=== PATIENT | male | born 1965 | race Caucasian/White ===

== ENCOUNTER 2020-08-24 00:15 | Inpatient (IN) ==
[2020-08-24] MEDS ORDERED: Naloxone 0.4 MG/ML INJ IVP PRN (05:18)
[2020-08-24] MEDS ORDERED: Ondansetron 4 MG/2 ML VIAL IVP PRN (05:18)
[2020-08-24] MEDS ORDERED: Acetaminophen 325 MG TABLET PO PRN (05:18)
[2020-08-24] MEDS ORDERED: Perflutren Lipid Microsphere 1.3 ML in 0.9 % Sodium Chloride 8.7 ML IVP PRN (05:23)
[2020-08-24 06:12] LABS: Basophils # 0.1 K/mcL (0.0-0.2); Basophils % 0.3 %; Eosinophils # 0.1 K/mcL (0.0-0.6); Eosinophils % 0.4 %; Hematocrit 37.4 % (37.5-50.1); Immature Granulocytes % 1.1 % (0-4); Lymphocytes # 1.3 K/mcL (0.6-4.6); Lymphocytes % 7.3 %; Mean Corpuscular HGB Conc 34.8 g/dL (31.6-35.5); Mean Corpuscular Hemoglobin 32.7 pg (28.0-33.3); Mean Platelet Volume 9.4 fL (9.4-12.4); Monocytes % 11.3 %; Neutrophils # 14.4 K/mcL (1.6-8.9); Platelet Count 173 K/mcL (140-400); Red Blood Count 3.98 M/mcL (4.19-5.50); Red Cell Distribution Width 13.1 % (11.5-14.5); Segmented Neutrophils % 79.6 %; White Blood Count 18.1 K/mcL (4.3-11.1)
[2020-08-24] MEDS: 0.9 % Sodium Chloride 1,000 ML IVC SCH ×3 (06:13→22:15)
[2020-08-24 06:35] LABS: BUN/Creatinine Ratio 19 (6-26); Blood Urea Nitrogen 26 mg/dL (6-20); Calcium 9.3 mg/dL (8.6-10.3); Carbon Dioxide 34 mEq/L (23-29); Chloride 86 mEq/L (98-107); Glucose 159 mg/dL (70-105); Magnesium 1.8 mg/dL (1.6-2.6); Osmolality,Calculated 282 (280-300); Potassium 2.6 mEq/L (3.5-5.1); Sodium 132 mEq/L (136-145); eGFR For African Americans > 60 (> 60); eGFR For Non-African Americans 53 (> 60)
[2020-08-24 06:55] LABS: Prolactin 10.87 ng/mL (3.00-14.70)
[2020-08-24 07:02] LABS: Thyroid Stimulating Hormone 4.228 mcIU/mL (0.340-5.600)
[2020-08-24 07:25] LABS: Troponin I 0.08 ng/mL (< 0.04)
[2020-08-24] MEDS ORDERED: Piperacillin/Tazobactam 3.375 GM in 0.9 % Sodium Chloride Mini Bag 100 ML IVPB SCH (08:00)
[2020-08-24] MEDS: Clindamycin 600 MG/50 ML 600 MG/50 ML IV.SOLN IVPB SCH ×2 (08:24→16:44)
[2020-08-24] MEDS: Potassium Chloride Elixir 20 MEQ/15 ML UDC PO SCH ×2 (08:24→09:29)
[2020-08-24] MEDS: *HR* Metoprolol 5 MG/5 ML VIAL IVP PRN (08:37)
[2020-08-24 09:31] LABS: Bacteria,Urine Few per hpf (None-Few); Bilirubin,Urine Negative (Negative); Blood,Urine Trace (Negative); Clarity,Urine Clear (Clear); Color,Urine Yellow (Yellow); Glucose,Urine (UA) Normal (Normal); Ketones,Urine Negative (Negative); Leukocyte Esterase,Urine Small (Negative); Mucus,Urine Few per lpf (None-Few); Nitrite,Urine Negative (Negative); Protein,Urine Trace mg/dL (Neg-Trace); RBC,Urine 0-3 per hpf (0-3); Specific Gravity,Urine 1.018 (1.010-1.025); Squamous Epithelial Cell,Urine Few per hpf (None-Few); Urobilinogen,Urine Normal (Normal); WBC,Urine 15-30 per hpf (0-3)
[2020-08-24 10:13] LABS: C-Reactive Protein > 300 mg/L (Less than 10)
[2020-08-24] MEDS: cefTRIAXone 2,000 MG in Water for inj. (sterile) 20 ML IVP SCH (13:00)
[2020-08-24] MEDS: *HR* Rivaroxaban 10 MG TABLET PO SCH (17:11)
[2020-08-24 18:43] LABS: Estimated Average Glucose 154 mg/dl
[2020-08-24 20:08] LABS: Potassium 2.8 mEq/L (3.5-5.1)
[2020-08-24 20:10] LABS: Troponin I 0.03 ng/mL (< 0.04)
[2020-08-24] MEDS: ARIPiprazole 5 MG TABLET PO SCH (23:21)
[2020-08-24] MEDS: allopurinoL 100 MG TABLET PO SCH (23:22)
[2020-08-25] MEDS: Clindamycin 600 MG/50 ML 600 MG/50 ML IV.SOLN IVPB SCH ×3 (00:07→16:51)
[2020-08-25 06:36] LABS: Basophils # 0.1 K/mcL (0.0-0.2); Basophils % 0.5 %; Eosinophils # 0.3 K/mcL (0.0-0.6); Hematocrit 35.1 % (37.5-50.1); Hemoglobin 12.1 g/dL (12.9-16.9); Immature Granulocytes % 0.8 % (0-4); Lymphocytes # 1.5 K/mcL (0.6-4.6); Lymphocytes % 11.9 %; Mean Corpuscular HGB Conc 34.5 g/dL (31.6-35.5); Mean Corpuscular Hemoglobin 32.9 pg (28.0-33.3); Mean Corpuscular Volume 95.4 fL (83.0-100.0); Mean Platelet Volume 9.5 fL (9.4-12.4); Monocytes # 1.5 K/mcL (0.0-1.3); Monocytes % 11.6 %; Neutrophils # 9.4 K/mcL (1.6-8.9); Platelet Count 172 K/mcL (140-400); Red Blood Count 3.68 M/mcL (4.19-5.50); Red Cell Distribution Width 13.3 % (11.5-14.5); Segmented Neutrophils % 73.2 %; White Blood Count 12.9 K/mcL (4.3-11.1)
[2020-08-25 06:53] LABS: BUN/Creatinine Ratio 18 (6-26); Blood Urea Nitrogen 19 mg/dL (6-20); Calcium 8.8 mg/dL (8.6-10.3); Carbon Dioxide 33 mEq/L (23-29); Chloride 94 mEq/L (98-107); Glucose 161 mg/dL (70-105); Osmolality,Calculated 286 (280-300); Sodium 135 mEq/L (136-145); eGFR For African Americans > 60 (> 60); eGFR For Non-African Americans > 60 (> 60)
[2020-08-25 06:54] LABS: Chol/HDL Ratio 7.9 (0-4.9)
[2020-08-25] MEDS: Aspirin Enteric Coated 81 MG Tablet PO SCH (08:47)
[2020-08-25] MEDS: allopurinoL 100 MG TABLET PO SCH ×3 (08:47→19:48)
[2020-08-25] MEDS: cefTRIAXone 2,000 MG in Water for inj. (sterile) 20 ML IVP SCH (12:44)
[2020-08-25] MEDS: lamoTRIgine 100 MG TABLET PO SCH (12:49)
[2020-08-25] MEDS ORDERED: Potassium Chloride Elixir 20 MEQ/15 ML UDC PO ONE (12:52)
[2020-08-25] MEDS: Furosemide 40 MG/4 ML VIAL IVP SCH (14:38)
[2020-08-25] MEDS ORDERED: NON-FORMULARY MEDICATION 1 EACH EACH (Pravastatin Sodium [Pravachol] 40 MG Tablet) PO SCH (18:00)
[2020-08-25] MEDS: *HR* Rivaroxaban 10 MG TABLET PO SCH (18:19)
[2020-08-25] MEDS: *HR* Metoprolol 5 MG/5 ML VIAL IVP PRN (18:20)
[2020-08-25] MEDS: Doxycycline 100 MG CAPSULE PO SCH (19:48)
[2020-08-25] MEDS: ARIPiprazole 5 MG TABLET PO SCH (19:48)
[2020-08-25 20:23] LABS: BUN/Creatinine Ratio 18 (6-26); Blood Urea Nitrogen 18 mg/dL (6-20); Calcium 9.1 mg/dL (8.6-10.3); Carbon Dioxide 31 mEq/L (23-29); Chloride 92 mEq/L (98-107); Glucose 230 mg/dL (70-105); Osmolality,Calculated 283 (280-300); Potassium 3.3 mEq/L (3.5-5.1); Sodium 132 mEq/L (136-145); eGFR For African Americans > 60 (> 60); eGFR For Non-African Americans > 60 (> 60)
[2020-08-25] MEDS: 0.9 % Sodium Chloride 1,000 ML IVC SCH (22:11)
[2020-08-26 03:03] LABS: Hematocrit 38.4 % (37.5-50.1); Hemoglobin 13.3 g/dL (12.9-16.9); Mean Corpuscular HGB Conc 34.6 g/dL (31.6-35.5); Mean Corpuscular Hemoglobin 32.8 pg (28.0-33.3); Mean Corpuscular Volume 94.6 fL (83.0-100.0); Mean Platelet Volume 9.4 fL (9.4-12.4); Platelet Count 199 K/mcL (140-400); Red Blood Count 4.06 M/mcL (4.19-5.50); Red Cell Distribution Width 13.1 % (11.5-14.5); White Blood Count 12.9 K/mcL (4.3-11.1)
[2020-08-26 03:22] LABS: BUN/Creatinine Ratio 19 (6-26); Blood Urea Nitrogen 18 mg/dL (6-20); Calcium 9.3 mg/dL (8.6-10.3); Carbon Dioxide 30 mEq/L (23-29); Chloride 92 mEq/L (98-107); Glucose 148 mg/dL (70-105); Osmolality,Calculated 285 (280-300); Potassium 3.1 mEq/L (3.5-5.1); Sodium 135 mEq/L (136-145); eGFR For African Americans > 60 (> 60); eGFR For Non-African Americans > 60 (> 60)
[2020-08-26] MEDS: Furosemide 40 MG/4 ML VIAL IVP SCH (08:17)
[2020-08-26] MEDS: Doxycycline 100 MG CAPSULE PO SCH ×2 (08:17→22:01)
[2020-08-26] MEDS: lamoTRIgine 100 MG TABLET PO SCH (08:17)
[2020-08-26] MEDS: allopurinoL 100 MG TABLET PO SCH ×3 (08:17→22:01)
[2020-08-26] MEDS: Aspirin Enteric Coated 81 MG Tablet PO SCH (08:17)
[2020-08-26] MEDS ORDERED: Potassium Chloride Elixir 20 MEQ/15 ML UDC PO ONE ×2 (09:07→15:00)
[2020-08-26] MEDS ORDERED: Magnesium Sulfate 1 GM/102 ML PIGGYBACK IVPB ONE ×2 (09:40→15:00)
[2020-08-26] MEDS: cefTRIAXone 2,000 MG in Water for inj. (sterile) 20 ML IVP SCH (14:46)
[2020-08-26] MEDS: *HR* Metoprolol 5 MG/5 ML VIAL IVP PRN (14:48)
[2020-08-26] MEDS: *HR* Rivaroxaban 10 MG TABLET PO SCH (18:13)
[2020-08-26] MEDS: Metoprolol XL (24 HR) Succ 50 MG TAB.ER.24H PO SCH ×2 (18:13→22:07)
[2020-08-26] MEDS: ARIPiprazole 5 MG TABLET PO SCH (22:01)
[2020-08-27] MEDS ORDERED: Benzonatate 100 MG CAPSULE PO PRN (02:41)
[2020-08-27 06:19] LABS: Hematocrit 38.9 % (37.5-50.1); Hemoglobin 12.9 g/dL (12.9-16.9); Mean Corpuscular HGB Conc 33.2 g/dL (31.6-35.5); Mean Corpuscular Hemoglobin 32.1 pg (28.0-33.3); Mean Corpuscular Volume 96.8 fL (83.0-100.0); Mean Platelet Volume 9.6 fL (9.4-12.4); Platelet Count 215 K/mcL (140-400); Red Blood Count 4.02 M/mcL (4.19-5.50); Red Cell Distribution Width 13.2 % (11.5-14.5); White Blood Count 15.1 K/mcL (4.3-11.1)
[2020-08-27 06:38] LABS: BUN/Creatinine Ratio 19 (6-26); Blood Urea Nitrogen 19 mg/dL (6-20); Calcium 9.6 mg/dL (8.6-10.3); Carbon Dioxide 31 mEq/L (23-29); Chloride 95 mEq/L (98-107); Glucose 152 mg/dL (70-105); Osmolality,Calculated 285 (280-300); Sodium 135 mEq/L (136-145); eGFR For African Americans > 60 (> 60); eGFR For Non-African Americans > 60 (> 60)
[2020-08-27] MEDS: Aspirin Enteric Coated 81 MG Tablet PO SCH (08:39)
[2020-08-27] MEDS: lamoTRIgine 100 MG TABLET PO SCH (08:40)
[2020-08-27] MEDS: Doxycycline 100 MG CAPSULE PO SCH (08:40)
[2020-08-27] MEDS: Metoprolol XL (24 HR) Succ 50 MG TAB.ER.24H PO SCH (08:40)
[2020-08-27] MEDS: Furosemide 40 MG/4 ML VIAL IVP SCH (08:40)
[2020-08-27] MEDS: allopurinoL 100 MG TABLET PO SCH ×2 (08:40→15:06)
[2020-08-27] MEDS ORDERED: Potassium Chloride Elixir 20 MEQ/15 ML UDC PO ONE (08:59)
[2020-08-27 09:55] LABS: Magnesium 1.7 mg/dL (1.6-2.6)
[2020-08-27 11:14] VITALS: BP 144/96
[2020-08-27] MEDS: cefTRIAXone 2,000 MG in Water for inj. (sterile) 20 ML IVP SCH (12:14)
[2020-08-27] MEDS ORDERED: DilTIAZem CD (24hr) 180 MG CAP.ER.24H PO SCH (13:00)
== END 2020-08-27 16:00 | disposition home or self-care (01) | DRG 871 ==
LOC: CDU → SUATTDRO 04:21
PROVIDERS: ADMIT Internal Medicine; ATTEND Internal Medicine

== ENCOUNTER 2021-10-14 11:16 | Inpatient (IN) ==
[2021-10-14] MEDS ORDERED: Naloxone 0.4 MG/ML INJ IVP PRN (14:35)
[2021-10-14] MEDS ORDERED: Ondansetron 4 MG/2 ML VIAL IVP PRN (14:35)
[2021-10-14] MEDS ORDERED: *HR* Dextrose 50 % in Water (Syg) 50 ML SYRINGE IVP PRN (14:38)
[2021-10-14] MEDS ORDERED: Dextrose Gel 15 GM/37.5 ML TUBE PO PRN ×2 (14:38)
[2021-10-14] MEDS ORDERED: D5% in Water 1,000 ML IVC PRN (14:38)
[2021-10-14] MEDS ORDERED: *HR* OxyCODONE Immed Rel 5 MG TABLET PO PRN (14:41)
[2021-10-14] MEDS: DilTIAZem CD (24hr) 180 MG CAP.ER.24H PO SCH (15:03)
[2021-10-14] MEDS: cefTRIAXone 1,000 MG in 0.9 % Sodium Chloride 10 ML IVPB SCH (15:03)
[2021-10-14 15:33] LABS: Calcium 8.6 mg/dL (8.6-10.3); Magnesium 1.7 mg/dL (1.6-2.6); Potassium 3.2 mEq/L (3.5-5.1)
[2021-10-14] MEDS: Insulin LISPRO 300 UNITS/3 ML VIAL SUBQ SCH ×2 (17:02→20:20)
[2021-10-14] MEDS ORDERED: Metoprolol XL (24 HR) Succ 50 MG TAB.ER.24H PO SCH (21:00)
[2021-10-15] MEDS ORDERED: Acetaminophen 325 MG TABLET PO PRN (00:04)
[2021-10-15 03:27] LABS: Magnesium 1.9 mg/dL (1.6-2.6)
[2021-10-15] MEDS: Magnesium Oxide 400 MG TABLET PO SCH ×2 (09:09→19:57)
[2021-10-15] MEDS: allopurinoL 100 MG TABLET PO SCH ×3 (09:09→19:54)
[2021-10-15] MEDS: DilTIAZem CD (24hr) 180 MG CAP.ER.24H PO SCH (09:09)
[2021-10-15] MEDS: lamoTRIgine 100 MG TABLET PO SCH (09:09)
[2021-10-15] MEDS: ARIPiprazole 5 MG TABLET PO SCH (09:09)
[2021-10-15] MEDS: Metoprolol XL (24 HR) Succ 50 MG TAB.ER.24H PO SCH ×2 (09:10→19:57)
[2021-10-15] MEDS: (Dapagliflozin Propanediol [Farxiga] 5 MG Tablet) PO SCH (09:10)
[2021-10-15] MEDS: DEXTROAMPHETAMINE PO SCH ×2 (09:10→19:53)
[2021-10-15] MEDS: Aspirin Enteric Coated 81 MG Tablet PO SCH (09:10)
[2021-10-15] MEDS: cefTRIAXone 1,000 MG in 0.9 % Sodium Chloride 10 ML IVPB SCH (09:10)
[2021-10-15] MEDS: AMPHETAMINE PO SCH ×2 (09:10→19:53)
[2021-10-15] MEDS: Insulin LISPRO 300 UNITS/3 ML VIAL SUBQ SCH ×4 (09:11→19:57)
[2021-10-15 10:24] LABS: Basophils # 0.1 K/mcL (0.0-0.2); Basophils % 0.5 %; Eosinophils # 0.1 K/mcL (0.0-0.6); Eosinophils % 0.6 %; Hematocrit 37.5 % (37.5-50.1); Immature Granulocytes % 0.9 % (0-4); Lymphocytes # 1.5 K/mcL (0.6-4.6); Lymphocytes % 8.9 %; Mean Corpuscular HGB Conc 34.7 g/dL (31.6-35.5); Mean Corpuscular Hemoglobin 32.6 pg (28.0-33.3); Monocytes # 1.4 K/mcL (0.0-1.3); Monocytes % 8.3 %; Neutrophils # 13.8 K/mcL (1.6-8.9); Platelet Count 201 K/mcL (140-400); Red Blood Count 3.99 M/mcL (4.19-5.50); Red Cell Distribution Width 14.4 % (11.5-14.5); Segmented Neutrophils % 80.8 %; White Blood Count 17.1 K/mcL (4.3-11.1)
[2021-10-15] MEDS ORDERED: Furosemide 20 MG/2 ML VIAL IVP ONE (11:12)
[2021-10-15] MEDS: *HR* Rivaroxaban 10 MG TABLET PO SCH (17:02)
[2021-10-15] MEDS: Magic Mouthwash 10 ML UD Cup PO ONE ×2 (21:05)
[2021-10-16] MEDS ORDERED: *HR* Promethazine 25 MG/ML VIAL IM ONE ×2 (00:06→06:05)
[2021-10-16 02:19] LABS: Basophils # 0.1 K/mcL (0.0-0.2); Basophils % 0.3 %; Eosinophils % 0.2 %; Hematocrit 37.8 % (37.5-50.1); Hemoglobin 12.8 g/dL (12.9-16.9); Immature Granulocytes % 1.1 % (0-4); Lymphocytes % 5.2 %; Mean Corpuscular HGB Conc 33.9 g/dL (31.6-35.5); Mean Corpuscular Hemoglobin 32.3 pg (28.0-33.3); Mean Corpuscular Volume 95.5 fL (83.0-100.0); Mean Platelet Volume 10.1 fL (9.4-12.4); Monocytes # 1.3 K/mcL (0.0-1.3); Monocytes % 7.2 %; Platelet Count 205 K/mcL (140-400); Red Blood Count 3.96 M/mcL (4.19-5.50); Red Cell Distribution Width 14.4 % (11.5-14.5); White Blood Count 18.6 K/mcL (4.3-11.1)
[2021-10-16 02:44] LABS: Calcium 8.8 mg/dL (8.6-10.3); Potassium 3.8 mEq/L (3.5-5.1)
[2021-10-16] MEDS ORDERED: Iopamidol - 370 500 ML MLS IVP ONE (04:42)
[2021-10-16] MEDS: Insulin LISPRO 300 UNITS/3 ML VIAL SUBQ SCH ×4 (08:05→20:08)
[2021-10-16] MEDS: cefTRIAXone 1,000 MG in 0.9 % Sodium Chloride 10 ML IVPB SCH (08:07)
[2021-10-16] MEDS: ARIPiprazole 5 MG TABLET PO SCH (08:08)
[2021-10-16] MEDS: Aspirin Enteric Coated 81 MG Tablet PO SCH (08:08)
[2021-10-16] MEDS: Metoprolol XL (24 HR) Succ 50 MG TAB.ER.24H PO SCH ×2 (08:08→20:07)
[2021-10-16] MEDS: Furosemide 20 MG/2 ML VIAL IVP SCH ×2 (08:08→20:07)
[2021-10-16] MEDS: DilTIAZem CD (24hr) 180 MG CAP.ER.24H PO SCH (08:08)
[2021-10-16] MEDS: lamoTRIgine 100 MG TABLET PO SCH (08:08)
[2021-10-16] MEDS: (Dapagliflozin Propanediol [Farxiga] 5 MG Tablet) PO SCH (08:09)
[2021-10-16] MEDS: AMPHETAMINE PO SCH ×2 (08:09→20:08)
[2021-10-16] MEDS: allopurinoL 100 MG TABLET PO SCH ×3 (08:09→20:07)
[2021-10-16] MEDS: Magnesium Oxide 400 MG TABLET PO SCH ×2 (08:09→20:07)
[2021-10-16] MEDS: DEXTROAMPHETAMINE PO SCH ×2 (08:09→20:08)
[2021-10-16] MEDS: Metoclopramide 10 MG/2 ML VIAL IVP SCH ×2 (09:05→16:21)
[2021-10-16] MEDS: Pantoprazole 40 MG VIAL IVP SCH ×2 (09:05→18:10)
[2021-10-16] MEDS: *HR* Rivaroxaban 10 MG TABLET PO SCH (16:20)
[2021-10-16] MEDS: *HR* Metoprolol 5 MG/5 ML VIAL IVP PRN (20:50)
[2021-10-17] MEDS: Metoclopramide 10 MG/2 ML VIAL IVP SCH ×3 (00:07→16:42)
[2021-10-17 03:26] LABS: Basophils # 0.1 K/mcL (0.0-0.2); Basophils % 0.5 %; Eosinophils # 0.2 K/mcL (0.0-0.6); Eosinophils % 1.8 %; Hematocrit 38.5 % (37.5-50.1); Hemoglobin 12.7 g/dL (12.9-16.9); Immature Granulocytes % 0.9 % (0-4); Lymphocytes # 1.5 K/mcL (0.6-4.6); Lymphocytes % 11.8 %; Mean Corpuscular Hemoglobin 32.1 pg (28.0-33.3); Mean Corpuscular Volume 97.2 fL (83.0-100.0); Mean Platelet Volume 9.8 fL (9.4-12.4); Monocytes # 1.5 K/mcL (0.0-1.3); Monocytes % 11.6 %; Neutrophils # 9.6 K/mcL (1.6-8.9); Nucleated Red Blood Cells 0.2 /100 WBC (0); Platelet Count 258 K/mcL (140-400); Red Blood Count 3.96 M/mcL (4.19-5.50); Red Cell Distribution Width 14.6 % (11.5-14.5); Segmented Neutrophils % 73.4 %; White Blood Count 13.1 K/mcL (4.3-11.1)
[2021-10-17 03:42] LABS: Calcium 8.7 mg/dL (8.6-10.3); Magnesium 2.2 mg/dL (1.6-2.6); Potassium 3.5 mEq/L (3.5-5.1)
[2021-10-17] MEDS: *HR* Metoprolol 5 MG/5 ML VIAL IVP PRN (05:15)
[2021-10-17] MEDS: Pantoprazole 40 MG VIAL IVP SCH ×2 (05:15→16:44)
[2021-10-17] MEDS: Metoprolol XL (24 HR) Succ 50 MG TAB.ER.24H PO SCH ×2 (09:09→21:34)
[2021-10-17] MEDS: lamoTRIgine 100 MG TABLET PO SCH (09:10)
[2021-10-17] MEDS: Magnesium Oxide 400 MG TABLET PO SCH ×2 (09:10→21:35)
[2021-10-17] MEDS: Aspirin Enteric Coated 81 MG Tablet PO SCH (09:10)
[2021-10-17] MEDS: allopurinoL 100 MG TABLET PO SCH ×3 (09:10→21:34)
[2021-10-17] MEDS: ARIPiprazole 5 MG TABLET PO SCH (09:10)
[2021-10-17] MEDS: DilTIAZem CD (24hr) 180 MG CAP.ER.24H PO SCH (09:10)
[2021-10-17] MEDS: cefTRIAXone 1,000 MG in 0.9 % Sodium Chloride 10 ML IVPB SCH (09:11)
[2021-10-17] MEDS: Furosemide 20 MG/2 ML VIAL IVP SCH ×2 (09:11→21:34)
[2021-10-17] MEDS: Insulin LISPRO 300 UNITS/3 ML VIAL SUBQ SCH ×4 (09:12→21:35)
[2021-10-17] MEDS: (Dapagliflozin Propanediol [Farxiga] 5 MG Tablet) PO SCH (09:12)
[2021-10-17] MEDS: DEXTROAMPHETAMINE PO SCH ×2 (09:13→22:00)
[2021-10-17] MEDS: AMPHETAMINE PO SCH ×2 (09:13→22:00)
[2021-10-18] MEDS: Metoclopramide 10 MG/2 ML VIAL IVP SCH ×3 (01:30→18:32)
[2021-10-18 02:50] LABS: Basophils # 0.1 K/mcL (0.0-0.2); Basophils % 0.7 %; Eosinophils # 0.2 K/mcL (0.0-0.6); Eosinophils % 1.5 %; Hematocrit 37.9 % (37.5-50.1); Hemoglobin 12.6 g/dL (12.9-16.9); Immature Granulocytes % 1.1 % (0-4); Lymphocytes # 1.5 K/mcL (0.6-4.6); Lymphocytes % 12.2 %; Mean Corpuscular HGB Conc 33.2 g/dL (31.6-35.5); Mean Corpuscular Hemoglobin 32.4 pg (28.0-33.3); Mean Corpuscular Volume 97.4 fL (83.0-100.0); Mean Platelet Volume 9.7 fL (9.4-12.4); Monocytes # 1.2 K/mcL (0.0-1.3); Monocytes % 9.9 %; Neutrophils # 9.2 K/mcL (1.6-8.9); Platelet Count 258 K/mcL (140-400); Red Blood Count 3.89 M/mcL (4.19-5.50); Red Cell Distribution Width 14.4 % (11.5-14.5); Segmented Neutrophils % 74.6 %; White Blood Count 12.3 K/mcL (4.3-11.1)
[2021-10-18 03:12] LABS: BUN/Creatinine Ratio 18 (6-26); Blood Urea Nitrogen 16 mg/dL (6-20); Calcium 8.8 mg/dL (8.6-10.3); Carbon Dioxide 34 mEq/L (23-29); Chloride 97 mEq/L (98-107); Glucose 187 mg/dL (70-105); Osmolality,Calculated 294 (280-300); Potassium 3.3 mEq/L (3.5-5.1); Sodium 139 mEq/L (136-145)
[2021-10-18] MEDS: Pantoprazole 40 MG VIAL IVP SCH ×2 (06:17→18:32)
[2021-10-18] MEDS: Aspirin Enteric Coated 81 MG Tablet PO SCH (08:01)
[2021-10-18] MEDS: lamoTRIgine 100 MG TABLET PO SCH (08:06)
[2021-10-18] MEDS: ARIPiprazole 5 MG TABLET PO SCH (08:06)
[2021-10-18] MEDS: allopurinoL 100 MG TABLET PO SCH ×3 (08:06→20:47)
[2021-10-18] MEDS: Metoprolol XL (24 HR) Succ 50 MG TAB.ER.24H PO SCH ×2 (08:07→20:48)
[2021-10-18] MEDS: Magnesium Oxide 400 MG TABLET PO SCH ×2 (08:07→20:47)
[2021-10-18] MEDS: DilTIAZem CD (24hr) 180 MG CAP.ER.24H PO SCH (08:08)
[2021-10-18] MEDS: cefTRIAXone 1,000 MG in 0.9 % Sodium Chloride 10 ML IVPB SCH (08:09)
[2021-10-18] MEDS: Furosemide 20 MG/2 ML VIAL IVP SCH ×2 (08:09→20:48)
[2021-10-18] MEDS: DEXTROAMPHETAMINE PO SCH ×2 (08:13→20:49)
[2021-10-18] MEDS: AMPHETAMINE PO SCH ×2 (08:13→20:49)
[2021-10-18] MEDS: (Dapagliflozin Propanediol [Farxiga] 5 MG Tablet) PO SCH (08:13)
[2021-10-18] MEDS: Insulin LISPRO 300 UNITS/3 ML VIAL SUBQ SCH ×4 (10:06→20:52)
[2021-10-18] MEDS ORDERED: *HR* Propofol 200 MG/20 ML VIAL IVP ONE (10:54)
[2021-10-18] MEDS ORDERED: Lidocaine HCL 4 ML Topical Solution (Laryng-O-Jet Kit Sterile Pak) TP ONE (10:54)
[2021-10-18] MEDS ORDERED: Lidocaine -MPF 2% 5 ML VIAL ONE (10:54)
[2021-10-18] MEDS ORDERED: *HR* Succinylcholine 200 MG/10 ML VIAL IVP ONE (10:54)
[2021-10-18] MEDS ORDERED: Ondansetron 4 MG/2 ML VIAL ONE (12:09)
[2021-10-18] MEDS ORDERED: allopurinoL 100 MG TABLET ONE (18:02)
[2021-10-18] MEDS: *HR* Rivaroxaban 10 MG TABLET PO SCH (18:32)
[2021-10-18] MEDS: *HR* Metoprolol 5 MG/5 ML VIAL IVP PRN (22:48)
[2021-10-18] MEDS ORDERED: *HR* Metoprolol 5 MG/5 ML VIAL IVP ONE (23:45)
[2021-10-19] MEDS: Metoclopramide 10 MG/2 ML VIAL IVP SCH ×3 (01:50→15:04)
[2021-10-19 06:16] LABS: Basophils # 0.1 K/mcL (0.0-0.2); Basophils % 0.3 %; Eosinophils % 0.1 %; Hematocrit 38.1 % (37.5-50.1); Hemoglobin 13.2 g/dL (12.9-16.9); Immature Granulocytes % 0.9 % (0-4); Lymphocytes % 5.7 %; Mean Corpuscular HGB Conc 34.6 g/dL (31.6-35.5); Mean Corpuscular Hemoglobin 33.2 pg (28.0-33.3); Mean Platelet Volume 9.5 fL (9.4-12.4); Monocytes # 0.9 K/mcL (0.0-1.3); Monocytes % 5.1 %; Neutrophils # 15.7 K/mcL (1.6-8.9); Platelet Count 298 K/mcL (140-400); Red Blood Count 3.97 M/mcL (4.19-5.50); Red Cell Distribution Width 13.8 % (11.5-14.5); Segmented Neutrophils % 87.9 %; White Blood Count 17.8 K/mcL (4.3-11.1)
[2021-10-19] MEDS: Pantoprazole 40 MG VIAL IVP SCH (06:28)
[2021-10-19 06:39] LABS: BUN/Creatinine Ratio 20 (6-26); Blood Urea Nitrogen 17 mg/dL (6-20); Calcium 9.2 mg/dL (8.6-10.3); Carbon Dioxide 32 mEq/L (23-29); Chloride 98 mEq/L (98-107); Glucose 186 mg/dL (70-105); Osmolality,Calculated 290 (280-300); Potassium 3.9 mEq/L (3.5-5.1); Sodium 137 mEq/L (136-145)
[2021-10-19] MEDS: Aspirin Enteric Coated 81 MG Tablet PO SCH (08:09)
[2021-10-19] MEDS: lamoTRIgine 100 MG TABLET PO SCH (08:09)
[2021-10-19] MEDS: Magnesium Oxide 400 MG TABLET PO SCH ×2 (08:09→21:16)
[2021-10-19] MEDS: Metoprolol XL (24 HR) Succ 50 MG TAB.ER.24H PO SCH ×2 (08:10→21:16)
[2021-10-19] MEDS: ARIPiprazole 5 MG TABLET PO SCH (08:10)
[2021-10-19] MEDS: DilTIAZem CD (24hr) 180 MG CAP.ER.24H PO SCH (08:10)
[2021-10-19] MEDS: allopurinoL 100 MG TABLET PO SCH ×3 (08:10→21:16)
[2021-10-19] MEDS: cefTRIAXone 1,000 MG in 0.9 % Sodium Chloride 10 ML IVPB SCH (08:10)
[2021-10-19] MEDS: Furosemide 20 MG/2 ML VIAL IVP SCH ×2 (08:11→21:16)
[2021-10-19] MEDS: (Dapagliflozin Propanediol [Farxiga] 5 MG Tablet) PO SCH (08:11)
[2021-10-19] MEDS: Insulin LISPRO 300 UNITS/3 ML VIAL SUBQ SCH ×4 (08:12→21:17)
[2021-10-19] MEDS: AMPHETAMINE PO SCH ×2 (08:12→21:17)
[2021-10-19] MEDS: DEXTROAMPHETAMINE PO SCH ×2 (08:12→21:17)
[2021-10-19] MEDS: *HR* Rivaroxaban 10 MG TABLET PO SCH (15:03)
[2021-10-20 03:56] LABS: Basophils # 0.1 K/mcL (0.0-0.2); Basophils % 0.6 %; Eosinophils # 0.3 K/mcL (0.0-0.6); Eosinophils % 1.7 %; Hematocrit 40.5 % (37.5-50.1); Hemoglobin 13.9 g/dL (12.9-16.9); Immature Granulocytes % 1.8 % (0-4); Lymphocytes # 1.9 K/mcL (0.6-4.6); Mean Corpuscular HGB Conc 34.3 g/dL (31.6-35.5); Mean Corpuscular Volume 96.2 fL (83.0-100.0); Mean Platelet Volume 10.2 fL (9.4-12.4); Monocytes # 1.2 K/mcL (0.0-1.3); Monocytes % 7.5 %; Platelet Count 326 K/mcL (140-400); Red Blood Count 4.21 M/mcL (4.19-5.50); Red Cell Distribution Width 13.9 % (11.5-14.5); Segmented Neutrophils % 76.4 %; White Blood Count 15.7 K/mcL (4.3-11.1)
[2021-10-20 04:16] LABS: BUN/Creatinine Ratio 19 (6-26); Blood Urea Nitrogen 18 mg/dL (6-20); Carbon Dioxide 29 mEq/L (23-29); Chloride 97 mEq/L (98-107); Glucose 162 mg/dL (70-105); Osmolality,Calculated 289 (280-300); Potassium 3.3 mEq/L (3.5-5.1); Sodium 137 mEq/L (136-145)
[2021-10-20] MEDS ORDERED: Potassium Effervescent 25 MEQ TABLET.EFF PO ONE (07:57)
[2021-10-20] MEDS: Aspirin Enteric Coated 81 MG Tablet PO SCH (08:07)
[2021-10-20] MEDS: Magnesium Oxide 400 MG TABLET PO SCH ×2 (08:07→19:49)
[2021-10-20] MEDS: allopurinoL 100 MG TABLET PO SCH ×3 (08:08→19:49)
[2021-10-20] MEDS: Furosemide 20 MG/2 ML VIAL IVP SCH ×2 (08:08→19:48)
[2021-10-20] MEDS: Metoprolol XL (24 HR) Succ 50 MG TAB.ER.24H PO SCH ×2 (08:08→19:49)
[2021-10-20] MEDS: DilTIAZem CD (24hr) 180 MG CAP.ER.24H PO SCH (08:08)
[2021-10-20] MEDS: lamoTRIgine 100 MG TABLET PO SCH (08:08)
[2021-10-20] MEDS: cefTRIAXone 1,000 MG in 0.9 % Sodium Chloride 10 ML IVPB SCH (08:09)
[2021-10-20] MEDS: (Dapagliflozin Propanediol [Farxiga] 5 MG Tablet) PO SCH (08:10)
[2021-10-20] MEDS: DEXTROAMPHETAMINE PO SCH ×2 (08:10→19:49)
[2021-10-20] MEDS: AMPHETAMINE PO SCH ×2 (08:10→19:49)
[2021-10-20] MEDS: Insulin LISPRO 300 UNITS/3 ML VIAL SUBQ SCH ×4 (08:11→17:21)
[2021-10-20] MEDS: ARIPiprazole 5 MG TABLET PO SCH (12:01)
[2021-10-20] MEDS: *HR* Rivaroxaban 10 MG TABLET PO SCH (17:20)
[2021-10-21 01:51] LABS: Basophils # 0.1 K/mcL (0.0-0.2); Basophils % 1.2 %; Eosinophils # 0.3 K/mcL (0.0-0.6); Eosinophils % 3.2 %; Hematocrit 38.2 % (37.5-50.1); Lymphocytes # 2.5 K/mcL (0.6-4.6); Lymphocytes % 22.9 %; Mean Corpuscular Hemoglobin 32.8 pg (28.0-33.3); Mean Corpuscular Volume 96.5 fL (83.0-100.0); Mean Platelet Volume 9.5 fL (9.4-12.4); Monocytes # 1.2 K/mcL (0.0-1.3); Neutrophils # 6.3 K/mcL (1.6-8.9); Platelet Count 315 K/mcL (140-400); Red Blood Count 3.96 M/mcL (4.19-5.50); Red Cell Distribution Width 13.7 % (11.5-14.5); Segmented Neutrophils % 58.7 %; White Blood Count 10.8 K/mcL (4.3-11.1)
[2021-10-21 02:08] LABS: BUN/Creatinine Ratio 20 (6-26); Blood Urea Nitrogen 18 mg/dL (6-20); Calcium 8.5 mg/dL (8.6-10.3); Carbon Dioxide 31 mEq/L (23-29); Chloride 97 mEq/L (98-107); Glucose 188 mg/dL (70-105); Osmolality,Calculated 289 (280-300); Potassium 3.8 mEq/L (3.5-5.1); Sodium 136 mEq/L (136-145)
[2021-10-21] MEDS: Metoprolol XL (24 HR) Succ 50 MG TAB.ER.24H PO SCH ×2 (08:13→20:29)
[2021-10-21] MEDS: allopurinoL 100 MG TABLET PO SCH ×3 (08:15→20:58)
[2021-10-21] MEDS: lamoTRIgine 100 MG TABLET PO SCH (08:16)
[2021-10-21] MEDS: DilTIAZem CD (24hr) 180 MG CAP.ER.24H PO SCH (08:17)
[2021-10-21] MEDS: Aspirin Enteric Coated 81 MG Tablet PO SCH (08:18)
[2021-10-21] MEDS: Magnesium Oxide 400 MG TABLET PO SCH ×2 (08:18→20:30)
[2021-10-21] MEDS: ARIPiprazole 5 MG TABLET PO SCH (08:19)
[2021-10-21] MEDS: DEXTROAMPHETAMINE PO SCH ×2 (08:20→20:45)
[2021-10-21] MEDS: AMPHETAMINE PO SCH ×2 (08:20→20:45)
[2021-10-21] MEDS: (Dapagliflozin Propanediol [Farxiga] 5 MG Tablet) PO SCH (08:20)
[2021-10-21] MEDS: Insulin LISPRO 300 UNITS/3 ML VIAL SUBQ SCH ×4 (08:21→20:32)
[2021-10-21] MEDS: Furosemide 20 MG/2 ML VIAL IVP SCH ×2 (08:23→20:30)
[2021-10-21] MEDS: cefTRIAXone 1,000 MG in 0.9 % Sodium Chloride 10 ML IVPB SCH (08:32)
[2021-10-21] MEDS: *HR* Rivaroxaban 10 MG TABLET PO SCH (17:29)
[2021-10-22] MEDS: Aspirin Enteric Coated 81 MG Tablet PO SCH (09:28)
[2021-10-22] MEDS: ARIPiprazole 5 MG TABLET PO SCH (09:28)
[2021-10-22] MEDS: allopurinoL 100 MG TABLET PO SCH ×3 (09:29→19:42)
[2021-10-22] MEDS: DilTIAZem CD (24hr) 180 MG CAP.ER.24H PO SCH (09:29)
[2021-10-22] MEDS: lamoTRIgine 100 MG TABLET PO SCH (09:29)
[2021-10-22] MEDS: Metoprolol XL (24 HR) Succ 50 MG TAB.ER.24H PO SCH ×2 (09:29→19:42)
[2021-10-22] MEDS: DEXTROAMPHETAMINE PO SCH ×2 (09:30→19:42)
[2021-10-22] MEDS: AMPHETAMINE PO SCH ×2 (09:30→19:42)
[2021-10-22] MEDS: Furosemide 20 MG/2 ML VIAL IVP SCH ×2 (09:30→19:42)
[2021-10-22] MEDS: Magnesium Oxide 400 MG TABLET PO SCH ×2 (09:30→19:42)
[2021-10-22] MEDS: (Dapagliflozin Propanediol [Farxiga] 5 MG Tablet) PO SCH (09:30)
[2021-10-22] MEDS: Insulin LISPRO 300 UNITS/3 ML VIAL SUBQ SCH ×4 (09:32→19:43)
[2021-10-22] MEDS: *HR* Rivaroxaban 10 MG TABLET PO SCH (16:15)
[2021-10-23] MEDS: lamoTRIgine 100 MG TABLET PO SCH (07:51)
[2021-10-23] MEDS: Aspirin Enteric Coated 81 MG Tablet PO SCH (07:51)
[2021-10-23] MEDS: allopurinoL 100 MG TABLET PO SCH ×3 (07:52→19:26)
[2021-10-23] MEDS: Magnesium Oxide 400 MG TABLET PO SCH ×2 (07:52→19:26)
[2021-10-23] MEDS: ARIPiprazole 5 MG TABLET PO SCH (07:52)
[2021-10-23] MEDS: Insulin LISPRO 300 UNITS/3 ML VIAL SUBQ SCH ×4 (07:53→19:27)
[2021-10-23] MEDS: AMPHETAMINE PO SCH ×2 (08:06→19:26)
[2021-10-23] MEDS: DEXTROAMPHETAMINE PO SCH ×2 (08:06→19:26)
[2021-10-23] MEDS: (Dapagliflozin Propanediol [Farxiga] 5 MG Tablet) PO SCH (08:06)
[2021-10-23] MEDS: Furosemide 20 MG/2 ML VIAL IVP SCH ×2 (08:18→19:26)
[2021-10-23] MEDS: DilTIAZem CD (24hr) 180 MG CAP.ER.24H PO SCH (08:18)
[2021-10-23] MEDS: Metoprolol XL (24 HR) Succ 50 MG TAB.ER.24H PO SCH ×2 (08:18→19:25)
[2021-10-23] MEDS: Nystatin Cream 15 GM TUBE TP SCH ×3 (16:59→19:26)
[2021-10-23] MEDS: *HR* Rivaroxaban 10 MG TABLET PO SCH (17:13)
[2021-10-23 23:42] VITALS: TEMP 97.1
[2021-10-24 04:10] VITALS: BP 101/77; PULSE 64
[2021-10-24] MEDS: Magnesium Oxide 400 MG TABLET PO SCH (09:09)
[2021-10-24] MEDS: Aspirin Enteric Coated 81 MG Tablet PO SCH (09:10)
[2021-10-24] MEDS: allopurinoL 100 MG TABLET PO SCH ×2 (09:10→15:41)
[2021-10-24] MEDS: lamoTRIgine 100 MG TABLET PO SCH (09:10)
[2021-10-24] MEDS: ARIPiprazole 5 MG TABLET PO SCH (09:11)
[2021-10-24] MEDS: Metoprolol XL (24 HR) Succ 50 MG TAB.ER.24H PO SCH (09:11)
[2021-10-24] MEDS: DilTIAZem CD (24hr) 180 MG CAP.ER.24H PO SCH (09:11)
[2021-10-24] MEDS: Furosemide 20 MG/2 ML VIAL IVP SCH (09:12)
[2021-10-24] MEDS: Insulin LISPRO 300 UNITS/3 ML VIAL SUBQ SCH ×2 (09:12→12:26)
[2021-10-24] MEDS: Nystatin Cream 15 GM TUBE TP SCH ×2 (09:18→15:42)
[2021-10-24] MEDS: DEXTROAMPHETAMINE PO SCH (09:18)
[2021-10-24] MEDS: AMPHETAMINE PO SCH (09:18)
[2021-10-24] MEDS: (Dapagliflozin Propanediol [Farxiga] 5 MG Tablet) PO SCH (09:19)
[2021-10-24 14:07] VITALS: O2SAT 96
== END 2021-10-24 16:05 | disposition home health service (06) | DRG 872 ==
LOC: 2NNU → SUATTDRO 14:17 → 3NENU 10-17 12:56
PROVIDERS: ADMIT Pharmacist; ATTEND Hospitalist

== ENCOUNTER 2021-11-21 00:17 | Inpatient (IN) ==
[2021-11-21] MEDS ORDERED: Naloxone 0.4 MG/ML INJ IVP PRN (09:17)
[2021-11-21] MEDS ORDERED: Melatonin 3 MG TABLET PO PRN (09:48)
[2021-11-21] MEDS ORDERED: Ondansetron 4 MG/2 ML VIAL IVP PRN (09:48)
[2021-11-21] MEDS ORDERED: *HR* LORazepam 2 MG/ML VIAL IVP PRN (10:26)
[2021-11-21] MEDS ORDERED: *HR* HYDROmorphone (PF) 1 MG/ML SYRINGE IVP PRN (12:14)
[2021-11-21] MEDS: *HR* HYDROcodone/Acet 5/325 mg TABLET PO PRN ×2 (12:50→20:03)
[2021-11-21] MEDS: ARIPiprazole 5 MG TABLET PO SCH (12:50)
[2021-11-21] MEDS: lamoTRIgine 100 MG TABLET PO SCH (12:51)
[2021-11-21] MEDS: *HR* OxyCODONE Immed Rel 5 MG TABLET PO PRN (16:50)
[2021-11-21] MEDS: allopurinoL 100 MG TABLET PO SCH ×2 (16:50→20:03)
[2021-11-21] MEDS: Metoprolol XL (24 HR) Succ 50 MG TAB.ER.24H PO SCH (19:58)
[2021-11-22] MEDS: *HR* HYDROcodone/Acet 5/325 mg TABLET PO PRN ×2 (05:17→20:17)
[2021-11-22] MEDS: lamoTRIgine 100 MG TABLET PO SCH (07:42)
[2021-11-22] MEDS: Aspirin Enteric Coated 81 MG Tablet PO SCH (07:42)
[2021-11-22] MEDS: Metoprolol XL (24 HR) Succ 50 MG TAB.ER.24H PO SCH ×2 (07:42→20:17)
[2021-11-22] MEDS: allopurinoL 100 MG TABLET PO SCH ×3 (07:42→20:17)
[2021-11-22] MEDS: ARIPiprazole 5 MG TABLET PO SCH (07:43)
[2021-11-22] MEDS: DilTIAZem CD (24hr) 180 MG CAP.ER.24H PO SCH (07:43)
[2021-11-22] MEDS ORDERED: tiZANidine 4 MG TABLET PO PRN (08:09)
[2021-11-22 10:47] LABS: Hematocrit 39.6 % (37.5-50.1); Hemoglobin 13.7 g/dL (12.9-16.9); Mean Corpuscular HGB Conc 34.6 g/dL (31.6-35.5); Mean Corpuscular Hemoglobin 32.4 pg (28.0-33.3); Mean Corpuscular Volume 93.6 fL (83.0-100.0); Mean Platelet Volume 9.2 fL (9.4-12.4); Platelet Count 202 K/mcL (140-400); Red Blood Count 4.23 M/mcL (4.19-5.50); White Blood Count 15.9 K/mcL (4.3-11.1)
[2021-11-22 11:12] LABS: BUN/Creatinine Ratio 19 (6-26); Blood Urea Nitrogen 14 mg/dL (6-20); Calcium 9.3 mg/dL (8.6-10.3); Carbon Dioxide 29 mEq/L (23-29); Chloride 97 mEq/L (98-107); Glucose 208 mg/dL (70-105); Magnesium 1.8 mg/dL (1.6-2.6); Osmolality,Calculated 285 (280-300); Phosphorous 2.2 mg/dL (2.7-4.5); Potassium 3.8 mEq/L (3.5-5.1); Sodium 134 mEq/L (136-145)
[2021-11-22] MEDS ORDERED: D5% in Water 1,000 ML IVC PRN (11:59)
[2021-11-22] MEDS ORDERED: Dextrose Gel 15 GM/37.5 ML TUBE PO PRN ×2 (11:59)
[2021-11-22] MEDS ORDERED: *HR* Dextrose 50 % in Water (Syg) 50 ML SYRINGE IVP PRN (11:59)
[2021-11-22] MEDS: Insulin LISPRO 300 UNITS/3 ML VIAL SUBQ SCH ×3 (13:44→20:18)
[2021-11-22] MEDS: Artificial Tears SOLN 15 ML BOTTLE RIGHT EYE SCH ×2 (13:45→20:18)
[2021-11-22] MEDS: Fluticasone Propionate Nasal 50 MCG/SPRAY BOTTLE NS SCH (15:05)
[2021-11-22] MEDS: *HR* Rivaroxaban 10 MG TABLET PO SCH (16:53)
[2021-11-23] MEDS: *HR* OxyCODONE Immed Rel 5 MG TABLET PO PRN ×2 (02:00→19:48)
[2021-11-23] MEDS ORDERED: Menthol 1 EACH LOZENGE PO PRN (02:50)
[2021-11-23] MEDS: Insulin LISPRO 300 UNITS/3 ML VIAL SUBQ SCH ×4 (07:22→19:54)
[2021-11-23] MEDS: Artificial Tears SOLN 15 ML BOTTLE RIGHT EYE SCH ×3 (07:26→19:49)
[2021-11-23] MEDS: Metoprolol XL (24 HR) Succ 50 MG TAB.ER.24H PO SCH ×2 (07:26→19:48)
[2021-11-23] MEDS: Fluticasone Propionate Nasal 50 MCG/SPRAY BOTTLE NS SCH (07:26)
[2021-11-23] MEDS: DilTIAZem CD (24hr) 180 MG CAP.ER.24H PO SCH (07:27)
[2021-11-23] MEDS: allopurinoL 100 MG TABLET PO SCH ×3 (07:27→19:48)
[2021-11-23] MEDS: Aspirin Enteric Coated 81 MG Tablet PO SCH (07:27)
[2021-11-23] MEDS: lamoTRIgine 100 MG TABLET PO SCH (07:27)
[2021-11-23] MEDS: ARIPiprazole 5 MG TABLET PO SCH (07:27)
[2021-11-23] MEDS: *HR* Rivaroxaban 10 MG TABLET PO SCH (17:02)
[2021-11-24 06:33] VITALS: TEMP 97.6
[2021-11-24] MEDS: ARIPiprazole 5 MG TABLET PO SCH (07:50)
[2021-11-24] MEDS: Metoprolol XL (24 HR) Succ 50 MG TAB.ER.24H PO SCH (07:50)
[2021-11-24] MEDS: lamoTRIgine 100 MG TABLET PO SCH (07:51)
[2021-11-24] MEDS: Aspirin Enteric Coated 81 MG Tablet PO SCH (07:51)
[2021-11-24] MEDS: DilTIAZem CD (24hr) 180 MG CAP.ER.24H PO SCH (07:51)
[2021-11-24] MEDS: allopurinoL 100 MG TABLET PO SCH (07:51)
[2021-11-24] MEDS: Fluticasone Propionate Nasal 50 MCG/SPRAY BOTTLE NS SCH (07:52)
[2021-11-24] MEDS: Artificial Tears SOLN 15 ML BOTTLE RIGHT EYE SCH (07:52)
[2021-11-24] MEDS: Insulin LISPRO 300 UNITS/3 ML VIAL SUBQ SCH ×2 (07:52→11:57)
[2021-11-24 09:03] LABS: Basophils # 0.1 K/mcL (0.0-0.2); Basophils % 0.6 %; Eosinophils # 0.4 K/mcL (0.0-0.6); Eosinophils % 2.9 %; Hematocrit 41.6 % (37.5-50.1); Hemoglobin 14.3 g/dL (12.9-16.9); Lymphocytes # 1.2 K/mcL (0.6-4.6); Lymphocytes % 8.8 %; Mean Corpuscular HGB Conc 34.4 g/dL (31.6-35.5); Mean Corpuscular Hemoglobin 32.6 pg (28.0-33.3); Mean Platelet Volume 8.8 fL (9.4-12.4); Monocytes # 1.6 K/mcL (0.0-1.3); Monocytes % 12.1 %; Platelet Count 256 K/mcL (140-400); Red Blood Count 4.38 M/mcL (4.19-5.50); Red Cell Distribution Width 13.1 % (11.5-14.5); Segmented Neutrophils % 74.6 %; White Blood Count 13.4 K/mcL (4.3-11.1)
[2021-11-24 09:25] LABS: BUN/Creatinine Ratio 18 (6-26); Blood Urea Nitrogen 13 mg/dL (6-20); Calcium 9.2 mg/dL (8.6-10.3); Carbon Dioxide 31 mEq/L (23-29); Chloride 97 mEq/L (98-107); Glucose 163 mg/dL (70-105); Magnesium 1.8 mg/dL (1.6-2.6); Osmolality,Calculated 284 (280-300); Phosphorous 3.1 mg/dL (2.7-4.5); Potassium 3.6 mEq/L (3.5-5.1); Sodium 135 mEq/L (136-145)
[2021-11-24] MEDS: *HR* OxyCODONE Immed Rel 5 MG TABLET PO PRN (11:16)
[2021-11-24 12:06] VITALS: BP 122/76; PULSE 71; O2SAT 95
== END 2021-11-24 15:41 | disposition home or self-care (01) | DRG 551 ==
LOC: 3BNU → SUATTDRO 08:42
PROVIDERS: ADMIT Internal Medicine; ATTEND Internal Medicine